=== PATIENT | male | born 1970 | race Caucasian/White ===

== ENCOUNTER 2020-03-06 13:45 | Emergency (ER) | payer BC, OTHER ==
[~2020-03-06] VITALS: Ht 180.3 cm; Wt 95.5 kg
--- NOTE | 2020-03-06 14:49 | NUR ---
Pt to xray
--- NOTE | 2020-03-06 15:14 | NUR ---
Pt updated with plan of care and is awaiting xray results. Pt denies any requests at this time.
[2020-03-06] MEDS ORDERED: ketorolac trometh inj. 60 MG/2 ML VIAL IM ONE (15:15)
[2020-03-06] MEDS ORDERED: IBUP-1984 PO (15:29)
[2020-03-06 16:11] VITALS: BP 146/76
== END 2020-03-06 16:12 | disposition home or self-care (01) ==
LOC: ER 13:46
DX: S22.32XA Fracture of one rib, left side, initial encounter for closed fracture (principal); S43.102A Unspecified dislocation of left acromioclavicular joint, initial encounter; S20.212A Contusion of left front wall of thorax, initial encounter; Z72.89 Other problems related to lifestyle; Z79.899 Other long term (current) drug therapy; V09.9XXA Pedestrian injured in unspecified transport accident, initial encounter; Y93.89 Activity, other specified; Y92.89 Other specified places as the place of occurrence of the external cause; Y99.0 Civilian activity done for income or pay
CPT/HCPCS: 71101; 73030; 96372; 99284; J1885